=== PATIENT | male | born 1950 | race Caucasian/White ===

== ENCOUNTER 2018-08-09 08:16 | Emergency (ER) | payer MEDICARE, OTHER, SELFPAY ==
[2018-08-09 08:23] VITALS: BP 122/57; PULSE 74; RESP 18; TEMP 36.6; O2SAT 96
--- NOTE | 2018-08-09 08:37 | W.ED.GENAD ---
Discharge Plan Disposition Patient Disposition: HOME Condition: Improving Discharge Details Chief Complaint: Orthopedic Clinical Impression: Plantar fasciitis of right foot, Gout attack ED Provider: Lincoln Andre Home Meds and New Rx's Prescriptions: New prednisone 20 mg tablet 60 mg PO DAILY 5 Days Qty: 15 RF: 0 Continued lisinopril 20 mg Tablet 20 mg PO DAILY RF: 0 docusate sodium 100 mg Capsule 100 mg PO DAILY RF: 0 multivitamin Capsule 1 cap PO QAM RF: 0 cholecalciferol (vitamin D3) [Vitamin D3] 1,000 unit Capsule 1,000 unit PO DAILY RF: 0 pregabalin 150 mg Capsule 150 mg PO BID RF: 0 diclofenac sodium [Voltaren] 1 % Gel 2 g TOPICAL BID RF: 0 naproxen sodium 220 mg Capsule 220 mg PO BID RF: 0 Discharge Instructions Instructions: Gout (ED) Additional Instructions: Please do daily massage of your Achilles tendon and heel as we discussed. Follow-up with your regular doctor upon your return to [place]. See nearest healthcare provider if you develop a fever, redness, worsening pain. Take prednisone as prescribed. Continue your regular medications Medical Decision Making 67-year-old male states he has a history of gout. He is visiting this area from his home in [place]. He has days of right heel pain similar to previous gout. Denies any injury. No fever or redness. He arrives to the ER with a temp of 36, pulse 74, blood pressure 122/57. On exam he has tenderness of the distal Achilles tendon and its plantar insertion. Consistent with probable plantar fasciitis but cannot exclude concomitant gout, particularly given history that he provides. Will treat with IM shot of Toradol, burst of prednisone. He will follow-up with his physician upon return home. He understands emergent return precautions HPI General Mode of arrival: ambulatory. Date/Time Provider Initiated Documentation: 08/09/18 08:18. Limitations to Documentation: no limitations. Information obtained by: patient and family. History of Present Illness 67 year old M presents to the emergency department with the chief complaint of Right heel pain, lateral, described as moderate and similar to prior episodes, Quality is described as dull and constant, and is localized to the left and lower extremity. Patient reports no radiation. Patient started experiencing this day(s) and it has been constant. No relieving factors improve symptom(s), Other factors that worsen symptoms (Worse with weightbearing but able to) . Patient notes no other symptoms. and other (No injury); denies fever/chills. Patient did receive the following treatments prior to arrival, none Related Data Home Medications Medication Instructions Recorded Confirmed cholecalciferol (vitamin D3) 1,000 unit PO DAILY 08/09/18 08/09/18 [Vitamin D3] diclofenac sodium [Voltaren] 2 g TOPICAL BID 08/09/18 08/09/18 docusate sodium 100 mg PO DAILY 08/09/18 08/09/18 lisinopril 20 mg PO DAILY 08/09/18 08/09/18 multivitamin 1 cap PO QAM 08/09/18 08/09/18 naproxen sodium 220 mg PO BID 08/09/18 08/09/18 prednisone 60 mg PO DAILY 5 Days #15 tab 08/09/18 pregabalin 150 mg PO BID 08/09/18 08/09/18 Previous Rx's Medication Instructions Recorded prednisone 60 mg PO DAILY 5 Days #15 tab 08/09/18 Allergies Allergy/AdvReac Type Severity Reaction Status Date / Time neomycin Allergy Skin Rash Unverified 08/09/18 08:37 General Stated Complaint: Orthopedic JAIME: 4 Review of Systems Review of Systems No fever, denies injury. 6 systems reviewed and otherwise negative [facility] Social History Smoking/Tobacco Use Status: Former Tobacco Use Alcohol Intake: former Details: CBD--daily Do you feel safe at home: Yes Do you feel safe in your relationship?: Yes Exam Narrative Exam Narrative: GEN: awake, alert, oriented 3. Pleasant, well groomed, interactive. HEAD: Normocephalic, atraumatic ENT: Mucous membranes moist, oropharynx unremarkable, External ear exam unremarkable EYES: PERRL, EOMI NECK: Full ROM, no KARI, no menigismus CHEST/RESP: Nontender, clear to auscultation bilateral, no wheeze/rhonchi/rales CARDIOVASCULAR: RRR, no murmur, rub crista. 2+ Rad pulse bilateral ABDOMEN: Soft, nontender, no mass. +Bowel sounds EXT: Full ROM, tender along right distal Achilles tendon, calcaneus, proximal lateral aspect of plantar surface of the heel. 2+ DP bilateral. No erythema or warmth. Motor graded 5 out of 5. Neuro: Grossly normal neurologic exam, conversant, interactive. Psych: Speech fluent, thoughts congruent, affect normal Course Vital Signs Temperature 36.6 C 08/09/18 08:23 Pulse 74 08/09/18 08:23 Respiratory Rate 18 08/09/18 08:23 Blood Pressure 122/57 L 08/09/18 08:23 Pulse Oximetry 96 08/09/18 08:23 Temperature 36.6 C 08/09/18 08:23 Temperature Source Temporal Artery Scan 08/09/18 08:23 Pulse 74 08/09/18 08:23 Respiratory Rate 18 08/09/18 08:23 Respiratory Effort Non-Labored 08/09/18 08:27 Blood Pressure 122/57 L 08/09/18 08:23 Blood Pressure Position Supine 08/09/18 08:23 Pulse Oximetry 96 08/09/18 08:23 Oxygen Delivery Method Room Air 08/09/18 08:23 Oxygen Flow Rate 0 08/09/18 08:23 Pain Level 9 08/09/18 08:29
--- NOTE | 2018-08-09 08:40 | ED.GENADUL_ITS ---
Discharge Plan Disposition Patient Disposition: HOME Condition: Improving Discharge Details Chief Complaint: Orthopedic Clinical Impression: Plantar fasciitis of right foot, Gout attack ED Provider: Lincoln Andre Home Meds and New Rx's Prescriptions: New prednisone 20 mg tablet 60 mg PO DAILY 5 Days Qty: 15 RF: 0 Continued lisinopril 20 mg Tablet 20 mg PO DAILY RF: 0 docusate sodium 100 mg Capsule 100 mg PO DAILY RF: 0 multivitamin Capsule 1 cap PO QAM RF: 0 cholecalciferol (vitamin D3) [Vitamin D3] 1,000 unit Capsule 1,000 unit PO DAILY RF: 0 pregabalin 150 mg Capsule 150 mg PO BID RF: 0 diclofenac sodium [Voltaren] 1 % Gel 2 g TOPICAL BID RF: 0 naproxen sodium 220 mg Capsule 220 mg PO BID RF: 0 Discharge Instructions Instructions: Gout (ED) Additional Instructions: Please do daily massage of your Achilles tendon and heel as we discussed. Follow-up with your regular doctor upon your return to [place]. See nearest healthcare provider if you develop a fever, redness, worsening pain. Take prednisone as prescribed. Continue your regular medications Medical Decision Making 67-year-old male states he has a history of gout. He is visiting this area from his home in [place]. He has days of right heel pain similar to previous gout. Denies any injury. No fever or redness. He arrives to the ER with a temp of 36, pulse 74, blood pressure 122/57. On exam he has tenderness of the distal Achilles tendon and its plantar insertion. Consistent with probable plantar fasciitis but cannot exclude concomitant gout, particularly given history that he provides. Will treat with IM shot of Toradol, burst of prednisone. He will follow-up with his physician upon return home. He understands emergent return precautions HPI General Mode of arrival: ambulatory . Date/Time Provider Initiated Documentation: 08/09/18 08:18 . Limitations to Documentation: no limitations . Information obtained by: patient and family . History of Present Illness 67 year old M presents to the emergency department with the chief complaint of Right heel pain, lateral, described as moderate and similar to prior episodes, Quality is described as dull and constant, and is localized to the left and lower extremity. Patient reports no radiation. Patient started experiencing this day(s) and it has been constant. No relieving factors improve symptom(s), Other factors that worsen symptoms (Worse with weightbearing but able to) . Patient notes no other symptoms. and other (No injury); denies fever/chills. Patient did receive the following treatments prior to arrival, none Related Data Home Medications Medication Instructions Recorded Confirmed cholecalciferol (vitamin D3) 1,000 unit PO DAILY 08/09/18 08/09/18 [Vitamin D3] diclofenac sodium [Voltaren] 2 g TOPICAL BID 08/09/18 08/09/18 docusate sodium 100 mg PO DAILY 08/09/18 08/09/18 lisinopril 20 mg PO DAILY 08/09/18 08/09/18 multivitamin 1 cap PO QAM 08/09/18 08/09/18 naproxen sodium 220 mg PO BID 08/09/18 08/09/18 prednisone 60 mg PO DAILY 5 Days #15 tab 08/09/18 pregabalin 150 mg PO BID 08/09/18 08/09/18 Previous Rx's Medication Instructions Recorded prednisone 60 mg PO DAILY 5 Days #15 tab 08/09/18 Allergies Allergy/AdvReac Type Severity Reaction Status Date / Time neomycin Allergy Skin Rash Unverified 08/09/18 08:37 General Stated Complaint: Orthopedic JAIME: 4 Review of Systems Review of Systems No fever, denies injury. 6 systems reviewed and otherwise negative [facility] Social History Smoking/Tobacco Use Status: Former Tobacco Use Alcohol Intake: former Details: CBD--daily Do you feel safe at home: Yes Do you feel safe in your relationship?: Yes Exam Narrative Exam Narrative: GEN: awake, alert, oriented 3. Pleasant, well groomed, interactive. HEAD: Normocephalic, atraumatic ENT: Mucous membranes moist, oropharynx unremarkable, External ear exam unremarkable EYES: PERRL, EOMI NECK: Full ROM, no KARI, no menigismus CHEST/RESP: Nontender, clear to auscultation bilateral, no wheeze/rhonchi/rales CARDIOVASCULAR: RRR, no murmur, rub crista. 2+ Rad pulse bilateral ABDOMEN: Soft, nontender, no mass. +Bowel sounds EXT: Full ROM, tender along right distal Achilles tendon, calcaneus, proximal lateral aspect of plantar surface of the heel. 2+ DP bilateral. No erythema or warmth. Motor graded 5 out of 5. Neuro: Grossly normal neurologic exam, conversant, interactive. Psych: Speech fluent, thoughts congruent, affect normal Course Vital Signs Temperature 36.6 C 08/09/18 08:23 Pulse 74 08/09/18 08:23 Respiratory Rate 18 08/09/18 08:23 Blood Pressure 122/57 L 08/09/18 08:23 Pulse Oximetry 96 08/09/18 08:23 Temperature 36.6 C 08/09/18 08:23 Temperature Source Temporal Artery Scan 08/09/18 08:23 Pulse 74 08/09/18 08:23 Respiratory Rate 18 08/09/18 08:23 Respiratory Effort Non-Labored 08/09/18 08:27 Blood Pressure 122/57 L 08/09/18 08:23 Blood Pressure Position Supine 08/09/18 08:23 Pulse Oximetry 96 08/09/18 08:23 Oxygen Delivery Method Room Air 08/09/18 08:23 Oxygen Flow Rate 0 08/09/18 08:23 Pain Level 9 08/09/18 08:29
[2018-08-09] MEDS: Ketorolac 30 MG/ML VIAL IM (08:47)
== END 2018-08-09 09:10 | disposition home or self-care (01) ==
LOC: ER 09:10
PROVIDERS: Emergency Provider Emergency Medicine
DX: M72.2 Plantar fascial fibromatosis (principal); M10.071 Idiopathic gout, right ankle and foot
CPT/HCPCS: 96372; 99284; J1885